=== PATIENT | female | born 1995 | race Caucasian/White ===

== ENCOUNTER 2021-07-22 10:42 | Emergency (ER) | payer OTHER ==
[2021-07-22 11:29] VITALS: BP 105/61; PULSE 90; TEMP 98.4; BMI 23.0
== END 2021-07-22 16:56 | disposition home or self-care (01) ==
LOC: JER 10:42
DX: R05.1 Acute cough (principal); M79.10 Myalgia, unspecified site
CPT/HCPCS: 36415; 71046-TC-FY; 87491; 87591; 87804; 99284-25; C9803; U0003; U0005